=== PATIENT | male | born 1965 | race Hispanic/Latino ===

== ENCOUNTER 2016-11-30 16:06 | Emergency (ER) | payer OTHER ==
[~2016-11-30] VITALS: Ht 175.3 cm; Wt 95.0 kg
[~2016-11-30 16:06] MED LIST: ASPI-9 PO; CLOB15CR3 TP; CYCL-265 PO; HYDR-3702 PO; HYDR-3754 PO; IBUP-793 PO; LSNP10T PO; LSNP20T PO; NAUSEA MED; ONDAN4ODT PO; OXYC-281 PO; OXYC10TA7 PO; OXYC15TA79 PO; OXYC1TAB12 PO; OXYC1TAB87 PO; OXYC20TA72 PO; TRM50T PO; TYLENOL #3; ZLP5T PO
--- OUTSIDE RECORDS SUMMARY | 2016-11-30 16:10 | XMS REPORT | Continuity of Care Document ---
Author Author [facility] Organization [facility] Address Unknown Phone Unavailable Care Team Providers Care Check Out Cashier Name Role Phone Makenzie Beyer PCP [phone] Insurance Providers Payer Name Policy Number Subscriber Name Relationship Self Pay [employer]rett [employer] Chief Complaint and Reason for Visit Chief Complaint Pain Reason for Visit Back pain Chronic back pain Problems Medical Problems Problem Onset Date Status Esophagogastroduodenoscopy 08/02/2012 Resolved Hiccoughs 08/04/2012 Resolved Low back strain 03/15/2013 Resolved Chronic back pain 02/13/2014 Active Pain in limb 10/08/2013 Resolved Pruritic rash 12/11/2013 Resolved Pain in scrotum 12/31/2013 Resolved Leg pain, right ~08/16/2014 Resolved Chronic pain due to trauma ~07/26/2014 Resolved Epidermal cyst ~06/18/2015 Active Back pain Unknown Active Chronic back pain Unknown Active Medications Medication Dose Route Sig Days/Qty Instructions Order Date Discontinued Date Status [Tylenol #3] 08/04/12 06/19/13 Discontinued [Nausea Med] 08/04/12 06/19/13 Discontinued Hydrocodone Bit/Acetaminophen 1 Tab ORAL Q 4H PRN 10 Qty Pain 08/04/12 06/19/13 Discontinued Ibuprofen 1 Tab ORAL EVERY 6 HOURS 25 Qty take with food to avoid stomache upset 03/15/13 06/19/13 Discontinued Hydrocodone Bit/Acetaminophen 1 - 2 Tab ORAL Q 4H PRN 20 Qty Pain 06/19/13 Discontinued Cyclobenzaprine Hcl 1 Tab ORAL TID PRN 15 Qty 03/15/13 06/19/13 Discontinued Hydrocodone Bit/Acetaminophen 1 Tab ORAL Q 4H PRN 15 Qty Pain 06/19/13 10/08/13 Discontinued Oxycodone/Acetaminophen 1 - 2 Tab ORAL Q 6H PRN 10 Qty Pain 06/19/13 Discontinued Oxycodone Hcl/Acetaminophen 1 Each ORAL q6hrs prn 4 Qty 10/08/1312/11 Discontinued Clobetasol Propionate/Emoll 15 Gm TOPICAL TWICE A DAY 15 Qty 12/31/13 02/13/14 Discontinued Acetaminophen/Hydrocodone Bitart 1 Each ORAL EVERY 6 HOURS PRN 12 Qty 12/31/13 12/31/13 Discontinued Oxycodone/Acetaminophen 1 - 2 Tab ORAL Q 6H PRN 10 Qty Pain 12/31/13 Discontinued Lisinopril (Zestril) 10 Mg ORAL DAILY 07/19/14 Active Oxycodone Hcl 10 Mg ORAL FOUR TIMES DAILY 07/19/14 08/16/14 Discontinued Tramadol Hcl 50 Mg ORAL THREE TIMES A DAY PRN PAIN 15 Qty 08/16/14 Discontinued Oxycodone Hcl/Acetaminophen 1 Tab ORAL EVERY 6 HOURS PRN PAIN 10 Qty Active Social History No social history. Hospital Discharge Instructions No hospital discharge instructions. Plan of Care Discharge Date 08/03/15 12:45am Disposition 01 HOME OR SELF-CARE Condition at Discharge Stable Instructions/Education Provided Chronic Pain Management (GEN) Acute Low Back Pain (ED) Prescriptions See Medications Section Referrals Makenzie Beyer Additional Instructions/Education ED POLINA if any worse. Follow up with your doctor. Some of your test results may not be complete prior to your leaving the Emergency Department. The Emergency Department is not authorized to give test results over the phone. Please contact the doctor's office listed in this packet of information for your final results. Follow up with your primary care physician or return to the Emergency Department for worsening or worrisome symptoms. * Emergency Department phone number: [phone], x [phone]* MEDICAL RECORD If you need copies of your X-rays, call [phone]. If you need copies of your medical record, including lab results, a signed authorization for release of records will be required. A telephone call for release of Health Information is not allowed. BILLING Billing can sometimes be confusing and frustrating. To help avoid confusion in the future, please take a moment to acquaint yourself with the billing parties for services. SERVICE BILLING [employer] Emergency Room Services [facility] Physician Services [facility] [place] [facility] Patients will receive bills for services from the appropriate provider. If you have any questions about your [facility] bill, our staff will be happy to assist you. Please call [phone], and ask for the billing department. THANK YOU for choosing [facility] as your emergency care provider! Functional Status No functional status results. Allergies, Adverse Reactions, Alerts Allergen Type Severity Reaction Status Last Updated Hydrocodone Allergy Intermediate GI UPSET Active 08/02/15 Acetaminophen Allergy Intermediate GI UPSET Active 08/02/15 Immunizations No immunization records. Vital Signs Acute Vital Signs Vital Response Date/Time Temperature (Fahrenheit) 98.9 Pulse 63 bpm Height 5 ft 9 in Weight 203 lb Body Mass Index 30.0 kg/m^2 Results Test Source Date Result Interp. Ref. Range Comments Activated Partial Thromboplast Time August 04, 2012 2:50pm 27.8 SEC N 25.0-39.0 Alanine Aminotransferase (ALT/SGPT) August 02, 2015 10:32pm 29 U/L L 30-65 Albumin August 02, 2015 10:32pm 4.2 g/dL N 3.4-5.0 Albumin/Globulin Ratio August 02, 2015 10:32pm 1.166 N 1.1-1.8 Alkaline Phosphatase August 02, 2015 10:32pm 54 U/L N 38-126 Anion Gap August 02, 2015 10:32pm 14.3 MEQ/L N 3-15 Aspartate Amino Transf (AST/SGOT) August 02, 2015 10:32pm 23 U/L N 15 -37 BUN/Creatinine Ratio August 02, 2015 10:32pm 16 N 10-20 Basophils # (Auto) August 02, 2015 10:32pm 0.0 10^3uL Basophils (%) (Auto) August 02, 2015 10:32pm 0 % N 0-2 Blood Urea Nitrogen August 02, 2015 10:32pm 14 mg/dL N 7-18 C-Reactive Protein August 02, 2015 10:32pm < 0.50 mg/dL 0.0-0.9 Calcium Level August 02, 2015 10:32pm 9.3 mg/dL N 8.8-10.8 Calcium/Ionized Calcium Ratio August 02, 2015 10:32pm 3.9 mg/dL N 3.8 -4.6 Calculated Osmolality August 02, 2015 10:32pm 274 mosm/L L 280-300 Carbon Dioxide Level August 02, 2015 10:32pm 29 mmol/L N 22-29 Chloride Level August 02, 2015 10:32pm 103 mmol/L N 98-108 Creatinine August 02, 2015 10:32pm 0.86 mg/dL N 0.8-1.5 Eosinophils # (Auto) August 02, 2015 10:32pm 0.4 10^3uL Eosinophils (%) (Auto) August 02, 2015 10:32pm 4 % N 0-4 Estimat Glomerular Filtration Rate August 02, 2015 10:32pm 113.0 Estimated GFR (Non- August 02, 2015 10:32pm 93.4 Glucose Level August 02, 2015 10:32pm 92 mg/dL DN 70-110 Hematocrit August 02, 2015 10:32pm 39.20 % N 39.00-50.00 Hemoglobin August 02, 2015 10:32pm 13.0 g/dL L 13.5-17.0 Lymphocytes # (Auto) August 02, 2015 10:32pm 4.3 X10^3 Lymphocytes (%) (Auto) August 02, 2015 10:32pm 41 % N 20-46 Mean Corpuscular Hemoglobin August 02, 2015 10:32pm 29.2 PG N 26.0- 34.0 Mean Corpuscular Hemoglobin Concent August 02, 2015 10:32pm 33.2 g/dL N 31.0-37.0 Mean Corpuscular Volume August 02, 2015 10:32pm 88 FL N 80-100 Mean Platelet Volume August 02, 2015 10:32pm 9.8 FL H 6.0-9.5 Monocytes # (Auto) August 02, 2015 10:32pm 0.9 X10^3 Monocytes (%) (Auto) August 02, 2015 10:32pm 8 % N 3-11 Neutrophils # (Auto) August 02, 2015 10:32pm 4.8 X10^3 Neutrophils (%) (Auto) August 02, 2015 10:32pm 46 % L 51-67 Platelet Count August 02, 2015 10:32pm 314 10^3uL N 150-450 Potassium Level August 02, 2015 10:32pm 4.3 mmol/L DN 3.5-5.1 Prothromb Time International Ratio August 04, 2012 2:50pm 1.0 N 0.8- 1.4 Prothrombin Time August 04, 2012 2:50pm 12.5 SEC N 12.3-14.4 Red Blood Count August 02, 2015 10:32pm 4.45 10^6uL L 4.50-5.50 Red Cell Distribution Width August 02, 2015 10:32pm 12.1 % N 11.8- 15.6 Sodium Level August 02, 2015 10:32pm 142 mmol/L N 135-150 Total Bilirubin August 02, 2015 10:32pm 0.3 mg/dL N 0.1-1.0 Total Protein August 02, 2015 10:32pm 7.8 g/dL N 6.4-8.5 Urine Bilirubin August 02, 2015 10:30pm Negative Negative Urine collection method Clean Catch Urine Clarity August 02, 2015 10:30pm Clear Urine collection method Clean Catch Urine Collection Type August 02, 2015 10:30pm Clean catch Urine collection method Clean Catch Urine Color August 02, 2015 10:30pm Yellow Urine collection method Clean Catch Urine Glucose (UA) August 02, 2015 10:30pm Negative Negative Urine collection method Clean Catch Urine Ketones August 02, 2015 10:30pm Negative Negative Urine collection method Clean Catch Urine Leukocyte Esterase August 02, 2015 10:30pm Negative Negative Urine collection method Clean Catch Urine Nitrite August 02, 2015 10:30pm Negative Negative Urine collection method Clean Catch Urine Protein August 02, 2015 10:30pm Negative Negative Urine collection method Clean Catch Urine RBC (Auto) August 02, 2015 10:30pm Negative Negative Urine collection method Clean Catch Urine Specific [place] August 02, 2015 10:30pm 1.025 1.005-1.030 Urine collection method Clean Catch Urine Urobilinogen August 02, 2015 10:30pm 0.2 mg/dL 0.2-1.0 Urine collection method Clean Catch Urine pH August 02, 2015 10:30pm 6.0 5.0 - 8.0 Urine collection method Clean Catch White Blood Count August 02, 2015 10:32pm 10.36 10^3uL N 4.0-11.0 Procedures No known history of procedures. Encounters Encounter Location Date/Time Departed Emergency Room [facility] 08/02/15 10:07pm Recent Diagnosis
--- OUTSIDE RECORDS SUMMARY | 2016-11-30 16:11 | XMS REPORT | Continuity of Care Document ---
Author Author [facility] Organization [facility] Address Unknown Phone Unavailable Care Team Providers Care Lodging Facilities Attendant Name Role Phone Makenzie Beyer PCP [phone] Insurance Providers Payer Name Policy Number Subscriber [...] worrisome symptoms. * Emergency Department phone number: [phone], x [phone]* MEDICAL RECORD If you need copies of your X-rays, call [phone]. If you need copies of [...] SERVICE BILLING [employer] Emergency Room Services [facility] Physician Services [facility] [place] [facility] Patients will receive bills for services from the appropriate provider. If you have any questions about your [facility] bill, our staff will be happy to assist you. Please call [phone], and ask for the billing department. THANK YOU for choosing [facility] as your emergency care provider! Functional [...] Urine collection method Clean Catch Urine Specific [place] August 02, 2015 10:30pm 1.025 1.005-1.030 Urine [...] Encounters Encounter Location Date/Time Departed Emergency Room [facility] 08/02/15 10:07pm Recent Diagnosis
[2016-11-30] MEDS ORDERED: ORPHENADRINE 60 MG/2 ML (NORFLEX) AMP IM ONE (16:45)
[2016-11-30] MEDS ORDERED: KETOROLAC 60 MG/2 ML (TORADOL) VIAL IM ONE (16:45)
--- NOTE | 2016-11-30 17:24 | Diagnostic Imaging Report ---
INDICATION: Left leg pain, trauma, swelling. COMPARISON: None. Two views of left tibia demonstrate no fracture dislocation. Articular surfaces are normal. There is no foreign body. IMPRESSION: Negative left tibia. Dictated by: Dictated on workstation # [id number]
--- NOTE | 2016-11-30 17:28 | NUR ---
AT BEDSIDE & PT ON TOILET IN ROOM WITH BILAT RAILS UP WHEN THIS RN GOES IN TO CHECK ON PT PAIN LEVEL. PT STATES "THOSE SHOTS DID NOTHING FOR ME....I USED TO BE ON HEAVY PAIN MEDS". DR BLACKBURN NOTIFIED. PT INFORMED THAT THE RAILS ARE UP SO HE WILL HAVE TO CALL A NURSE FOR HELP TO GET UP. PT APOLOGIZES & GETS UP EASILY FROM TOILET, WALKS TO BED. PT GROANS WHEN GETTING ONTO PT BED. CL
--- NOTE | 2016-11-30 17:32 | Diagnostic Imaging Report ---
INDICATION: Fall, left femur pain, swelling. COMPARISON: None. FINDINGS: Multiple views of left femur demonstrate no fracture or dislocation. Articular surfaces are normal. There is no osseous lesion. IMPRESSION: Negative left femur. Dictated by: Dictated on workstation # [id number]
--- NOTE | 2016-11-30 18:00 | NUR ---
PT CALLS THIS RN TO ASK "HOW MUCH LONGER IS THIS GOING TO TAKE BECAUSE I'M HUNGRY & I WANT TO GO HOME". DR BLACKBURN NOTIFIED. PT BILAT RAILS REMAIN UP. CL
[2016-11-30] MEDS ORDERED: NF-TORA10 PO (18:08)
[2016-11-30 18:15] VITALS: BP 109/77
[2016-12-22] MEDS ORDERED: OXYC20TA3 PO (14:31)
[2016-12-22] MEDS ORDERED: OXYC10TA7 PO (15:08)
[2017-01-18] MEDS ORDERED: OXYC10TA7 PO (19:47)
[2017-01-31] MEDS ORDERED: ONDA4TAB8 PO (08:32)
[2017-01-31] MEDS ORDERED: OXYC10TA7 PO (08:41)
[2017-02-03] MEDS ORDERED: CLN.1T PO (13:08)
== END 2016-11-30 18:16 | disposition home or self-care (01) ==
LOC: ED 16:07
DX: S70.12XA Contusion of left thigh, initial encounter (principal); W13.3XXA Fall through floor, initial encounter; Y93.9 Activity, unspecified; Y92.008 Other place in unspecified non-institutional (private) residence as the place of occurrence of the external cause
CPT/HCPCS: 73552; 73590; 96372; 99282; J1885; J2360; 99283

== ENCOUNTER 2016-12-22 14:19 | Emergency (ER) | payer OTHER ==
[~2016-12-22] VITALS: Ht 175.3 cm; Wt 99.2 kg
[2016-12-22 15:15] VITALS: BP 135/89
== END 2016-12-22 15:16 | disposition home or self-care (01) ==
LOC: EDUNIT# 14:19 → ED 14:21
DX: G89.29 Other chronic pain (principal)
CPT/HCPCS: 99282; 99283

== ENCOUNTER 2017-01-18 18:59 | Emergency (ER) | payer OTHER ==
[~2017-01-18] VITALS: Ht 175.3 cm; Wt 100.1 kg
[2017-01-18 19:05] VITALS: BP 154/104
== END 2017-01-18 19:53 | disposition home or self-care (01) ==
LOC: ED 19:01
DX: G89.29 Other chronic pain (principal); M54.5 Low back pain; F17.210 Nicotine dependence, cigarettes, uncomplicated; R46.89 Other symptoms and signs involving appearance and behavior
CPT/HCPCS: 99282; 99283

== ENCOUNTER 2017-01-21 13:48 | Emergency (ER) | payer BC, OTHER ==
[~2017-01-21] VITALS: Ht 175.3 cm; Wt 101.7 kg
[2017-01-21 18:16] VITALS: BP 152/96
== END 2017-01-21 14:50 | disposition home or self-care (01) ==
LOC: ED 13:50
DX: G89.11 Acute pain due to trauma (principal); M79.674 Pain in right toe(s); W19.XXXA Unspecified fall, initial encounter; Y92.009 Unspecified place in unspecified non-institutional (private) residence as the place of occurrence of the external cause
CPT/HCPCS: 99282

== ENCOUNTER 2017-01-31 07:16 | Emergency (ER) | payer BC ==
[~2017-01-31] VITALS: Ht 175.3 cm; Wt 94.0 kg
[2017-01-31] MEDS ORDERED: KETOROLAC 30 MG/ML (TORADOL) 1 ML VIAL IV ONE (07:20)
[2017-01-31] MEDS ORDERED: ONDANSETRON 2 MG/ML (Z0FRAN) 2 ML VIAL IV ONE (07:20)
[2017-01-31 07:35] LABS: BASOPHILS % (AUTO) 1 % (0-2); EOSINOPHILS % (AUTO) 0 % (0-4); LYMPHOCYTES # (AUTO) 0.6 X10^3; MEAN CORPUSCULAR HEMOGLOBIN 29.2 PG (26.0-34.0); MEAN CORPUSCULAR HGB CONC 33.5 g/dL (31.0-37.0); MEAN CORPUSCULAR VOLUME 87 FL (80-100); MEAN PLATELET VOLUME 9.2 FL (6.0-9.5); MONOCYTES # (AUTO) 0.6 X10^3; MONOCYTES % (AUTO) 10 % (3-11); NEUTROPHILS # (AUTO) 4.4 X10^3; NEUTROPHILS % (AUTO) 79 % (51-67); PLATELET COUNT 230 10^3uL (150-450)
[2017-01-31 07:50] LABS: ALBUMIN 4.2 g/dL (3.4-5.0); CALCULATED IONIZED CALCIUM 3.6 mg/dL (3.8-4.6); TOTAL PROTEIN 7.9 g/dL (6.4-8.5)
[2017-01-31] MEDS ORDERED: PROMETHAZINE HCL INJ 12.5 MG in SODIUM CHLORIDE 25 ML IV ONE (07:55)
[2017-01-31] MEDS ORDERED: HYDROmorphone 1 MG/ML (DILAUDID) SYRINGE IV ONE ×2 (07:55→09:05)
[2017-01-31] MEDS ORDERED: lisINopril 20 MG (PRINIVIL) TABLET PO ONE (07:55)
[2017-01-31] MEDS ORDERED: lisINopril 10 MG (PRINIVIL) TABLET ONE (07:59)
[2017-01-31] MEDS ORDERED: lisINopril 10 MG (PRINIVIL) TABLET PO ONE (08:15)
[2017-01-31 09:28] VITALS: BP 158/98
== END 2017-01-31 09:29 | disposition home or self-care (01) ==
LOC: EDUNIT# 07:16 → ED 07:17
DX: R11.2 Nausea with vomiting, unspecified (principal); R51 Headache; R19.7 Diarrhea, unspecified
CPT/HCPCS: 36415; 80053; 82150; 83690; 85025; 86140; 96365; 96375; 99284; J1170; J1885; J2405; J2550; J7030; 99283

== ENCOUNTER → 2017-01-31 | Outpatient (CLI) | payer BC | LOC: EMS 07:00 | PROVIDERS: ATTEND Family Medicine | DX: R50.9 Fever, unspecified (principal); R11.2 Nausea with vomiting, unspecified ==

== ENCOUNTER 2017-02-02 12:56 | Emergency (ER) | payer BC ==
[~2017-02-02] VITALS: Ht 175.3 cm; Wt 97.0 kg
[2017-02-02 14:38] LABS: MEAN CORPUSCULAR HGB CONC 33.7 g/dL (31.0-37.0); MEAN CORPUSCULAR VOLUME 86 FL (80-100); MEAN PLATELET VOLUME 9.5 FL (6.0-9.5); PLATELET COUNT 233 10^3uL (150-450); WHITE BLOOD COUNT 6.74 10^3uL (4.0-11.0)
[2017-02-02 14:51] LABS: BILIRUBIN,URINE Negative (Negative); CLARITY,URINE Clear; COLOR,URINE Yellow; GLUCOSE, URINE (UA) Negative (Negative); LEUKOCYTE ESTERASE ,URINE Negative (Negative); UROBILINOGEN,URINE 0.2 mg/dL (0.2-1.0)
[2017-02-02 14:53] LABS: ALBUMIN 4.3 g/dL (3.4-5.0); ANION GAP 12.1 MEQ/L (3-15); CALCULATED IONIZED CALCIUM 3.7 mg/dL (3.8-4.6); TOTAL PROTEIN 8.1 g/dL (6.4-8.5)
[2017-02-02 14:54] LABS: BAND NEUTROPHILS % 6 % (0-6); EOSINOPHILS % 1 % (0-4); MONOCYTES % 16 % (3-11); RBC MORPH NORMAL (NORMAL); SEGMENTED NEUTROPHILS % 30 % (51-67); TOTAL CELLS COUNTED 100
[2017-02-02 15:01] LABS: URINE CENTRIFUGED VOLUME 12 mL
[2017-02-02 15:03] LABS: AMPHETAMINE SCREEN, URINE Negative (Negative); CANNABINOID SCREEN, URINE Negative (Negative); METHAMPHETAMINE SCREEN URINE S NEGATIVE (NEGATIVE); OPIATE SCREEN URINE Positive (Negative); PROPOXYPHENE STAT NEGATIVE (NEGATIVE)
[2017-02-02 15:09] LABS: RBC,URINE None Seen /HPF
[2017-02-02 16:04] VITALS: BP 103/61
== END 2017-02-02 16:00 | disposition home or self-care (01) ==
LOC: EDUNIT# 12:56 → ED 12:58
DX: E86.0 Dehydration (principal); F11.10 Opioid abuse, uncomplicated; R11.2 Nausea with vomiting, unspecified; R19.7 Diarrhea, unspecified
CPT/HCPCS: 36415; 80053; 80307; 81003; 81015; 83690; 85025; 99283; J7030; 96360; 99282

== ENCOUNTER 2017-02-03 12:53 | Emergency (ER) | payer BC ==
[~2017-02-03] VITALS: Ht 175.3 cm; Wt 97.0 kg
--- NOTE | 2017-02-03 13:10 | NUR ---
PT STATES HE HAD STOPPED HIS PCP (WHICH HE ACTUALLY NAMED HIS PAIN MANAGEMENT MD & HE STATES HE WILL BE GETTING DR HOBBS FOR PCP) ON THE WAY BACK FROM [place] TODAY & THAT MD IS UNABLE TO SEE HIM UNTIL WEDNESDAY. CL
--- NOTE | 2017-02-03 13:25 | NUR ---
PT ASKS DR ROSSI FOR PAIN MEDICATION UPON COMPLETION OF RECTAL EXAM. PT INFORMED HE WOULD HAVE TO GET HIS PAIN MEDICATION FROM HIS PAIN MANAGEMENT MD. PT IMMED BECOMES ANGRY & STARTS TO YELL "THIS IS REDICULOUS....GET ME OUT OF HERE IF IM NOT GOING TO GET ANY HELP". "IM HERE AND DON'T GET ANY ANSWERS FOR WHATS GOING ON WITH ME. GET ME OUT OF HERE. YOU PEOPLE DON'T CARE ABOUT ANYONE. I BETTER NOT GET A BILL FOR THIS." PT INITIALS HIS SIGNATURE ON AMA PAPERWORK. PT WALKS QUIKLY AFTER QUICKLY GETTING HIS PANTS BACK ON & HAS NO OBVIOUS LIMP. CL
[2017-02-03 14:28] VITALS: BP 130/89
== END 2017-02-03 13:28 | disposition home or self-care (01) ==
LOC: EDUNIT# 12:53 → ED 12:55
DX: R10.31 Right lower quadrant pain (principal)
CPT/HCPCS: 99281; 99283